=== PATIENT | female | born 1935 | race Caucasian/White ===

== ENCOUNTER 2018-06-08 11:56 | Emergency (ER) | payer BC ==
[~2018-06-08] VITALS: Ht 160 cm; Wt 44.5 kg
[2018-06-08 12:01] VITALS: Ht 160 cm; Wt 44.5 kg
[2018-06-08 12:51] LABS: BASOPHIL % 0.7 % (0-2)
[2018-06-08 12:57] LABS: CALCIUM 8.9 mg/dL (8.5-10.1); CHLORIDE SERUM 97 mmol/L (98-107); CREATININE SERUM 0.6 mg/dL (0.6-1.0); GLUCOSE SERUM 90 mg/dL (74-106); POTASSIUM SERUM 3.8 mmol/L (3.5-5.1); SODIUM SERUM 134 mmol/L (136-145)
[2018-06-08 13:04] LABS: ALBUMIN 2.8 g/dL (3.4-5.0); ALKALINE PHOSPHATASE 101 U/L (46-116); ALT/SGPT 20 U/L (14-59); AST/SGOT 14 U/L (15-37); BILIRUBIN TOTAL 0.34 mg/dL (0.20-1.00); CHOLESTEROL 127 mg/dL (<200); CHOLESTEROL/HDL RATIO 2.4; HDL CHOLESTEROL 53 mg/dL (40-60); LIPASE 103 IU/L (73-393); TOTAL PROTEIN, SERUM 8.2 g/dL (6.4-8.2); TRIGLYCERIDES 66 mg/dL (<150)
[2018-06-08 13:06] LABS: PLATELET COUNT 701 x10^3mcL (130-400); RED CELL DISTRIBUTION WIDTH 22.2 % (11.5-14.5)
[2018-06-08 13:10] LABS: T3 TOTAL 0.97 ng/mL
[2018-06-08 13:28] LABS: FREE T4 0.91 ng/dL (0.76-1.46); FREE THYROXINE INDEX 2.7 ug/dL (1.4-4.5); T4(THYROXINE) 7.2 ug/dL (4.7-13.3)
[2018-06-08 15:36] VITALS: BP 124/76
== END 2018-06-08 15:36 | disposition home or self-care (01) ==
LOC: ED 11:56
PROVIDERS: Specialist
DX: F41.9 Anxiety disorder, unspecified (principal); I11.0 Hypertensive heart disease with heart failure; I50.9 Heart failure, unspecified; Z85.118 Personal history of other malignant neoplasm of bronchus and lung; Z88.2 Allergy status to sulfonamides; Z88.8 Allergy status to other drugs, medicaments and biological substances; Z88.5 Allergy status to narcotic agent
CPT/HCPCS: 83880; 84439; J2060; J7030

== ENCOUNTER 2019-04-27 09:42 | Inpatient (IN) | payer BC ==
[~2019-04-27] VITALS: Ht 152.4 cm; Wt 41.3 kg
[2019-04-27 09:44] VITALS: Ht 152.4 cm; Wt 41.3 kg
[2019-04-27 10:55] LABS: BASOPHIL % 0.3 % (0-2); RED CELL DISTRIBUTION WIDTH 19.2 % (11.5-14.5)
[2019-04-27 10:56] LABS: CALCIUM 8.6 mg/dL (8.5-10.1); CARBON DIOXIDE 26.3 mmol/L (21-32); CHLORIDE SERUM 100 mmol/L (98-107); CREATININE SERUM 0.6 mg/dL (0.6-1.0); GLUCOSE SERUM 100 mg/dL (74-106); POTASSIUM SERUM 4.3 mmol/L (3.5-5.1); SODIUM SERUM 134 mmol/L (136-145)
[2019-04-27 11:01] LABS: ALKALINE PHOSPHATASE 93 U/L (46-116); ALT/SGPT 16 U/L (14-59); AST/SGOT 15 U/L (15-37); BILIRUBIN TOTAL 0.19 mg/dL (0.20-1.00); TOTAL PROTEIN, SERUM 7.1 g/dL (6.4-8.2)
[2019-04-27 11:05] LABS: ALBUMIN 2.4 g/dL (3.4-5.0)
[2019-04-27 11:41] LABS: PLATELET COUNT 507 x10^3mcL (130-400)
[2019-04-27] MEDS ORDERED: KADIAN10 M1 PO (13:29)
[2019-04-27] MEDS ORDERED: GRALISE600 MG PO (13:29)
[2019-04-27] MEDS ORDERED: METOPROLOL ER-1 EACH PO (13:29)
[2019-04-27] MEDS ORDERED: ARIPIPRAZOLE OD10 MG PO (13:29)
[2019-04-27] MEDS ORDERED: ASPIRIN ADULT L81 M5 PO (13:30)
[2019-04-27] MEDS ORDERED: PLAVIX75 M1 PO (13:31)
[2019-04-27 14:10] LABS: CHOLESTEROL/HDL RATIO 2.9
[2019-04-27 14:17] LABS: FREE T4 0.72 ng/dL (0.76-1.46); FREE THYROXINE INDEX 1.8 ug/dL (1.4-4.5); T4(THYROXINE) 5.2 ug/dL (4.7-13.3)
[2019-04-27 14:18] LABS: T3 TOTAL 1.03 ng/mL
[2019-04-27 14:22] VITALS: BP 138/94
[2019-04-27 19:37] LABS: TOTAL IRON BINDING CAPACITY 285 ug/dL (250-450)
[2019-04-27 19:38] LABS: IRON 30 ug/dL (50-170)
[2019-04-27 20:40] VITALS: BP 152/65
[2019-04-28 06:36] VITALS: BP 119/57
[2019-04-28 08:27] VITALS: BP 128/69
[2019-04-28 08:30] LABS: BASOPHIL % 0.4 % (0-2)
[2019-04-28 08:33] LABS: PLATELET COUNT 454 x10^3mcL (130-400); RED CELL DISTRIBUTION WIDTH 19.2 % (11.5-14.5)
[2019-04-28 08:47] LABS: CALCIUM 8.5 mg/dL (8.5-10.1); CARBON DIOXIDE 29.9 mmol/L (21-32); CHLORIDE SERUM 106 mmol/L (98-107); CREATININE SERUM 0.6 mg/dL (0.6-1.0); GLUCOSE SERUM 84 mg/dL (74-106); MAGNESIUM 1.8 mg/dL (1.8-2.4); PHOSPHOROUS 4.1 mg/dL (2.5-4.9); POTASSIUM SERUM 3.4 mmol/L (3.5-5.1); SODIUM SERUM 142 mmol/L (136-145)
[2019-04-28 12:29] VITALS: BP 141/71
[2019-04-28 16:30] VITALS: BP 131/59
[2019-04-28 20:50] VITALS: BP 122/78
[2019-04-29 04:38] VITALS: BP 144/70
[2019-04-29 07:20] LABS: BASOPHIL % 0.4 % (0-2)
[2019-04-29 07:26] LABS: PLATELET COUNT 430 x10^3mcL (130-400); RED CELL DISTRIBUTION WIDTH 19.4 % (11.5-14.5)
[2019-04-29 07:40] LABS: CALCIUM 8.6 mg/dL (8.5-10.1); CARBON DIOXIDE 29.2 mmol/L (21-32); CHLORIDE SERUM 104 mmol/L (98-107); CREATININE SERUM 0.6 mg/dL (0.6-1.0); GLUCOSE SERUM 88 mg/dL (74-106); POTASSIUM SERUM 3.9 mmol/L (3.5-5.1); SODIUM SERUM 141 mmol/L (136-145)
[2019-04-29 07:59] VITALS: BP 139/90
[2019-04-29] MEDS ORDERED: METP PO (11:24)
[2019-04-29] MEDS ORDERED: AMITIZA24 MC1 PO (11:24)
[2019-04-29] MEDS ORDERED: FER300 PO (11:25)
[2019-04-29 12:52] VITALS: BP 139/90
== END 2019-04-29 14:17 | disposition home health service (06) | DRG 377 ==
LOC: ED 09:42 → DU 12:55
PROVIDERS: Emergency Medicine; Internal Medicine Gastroenterology; ADMIT Family Medicine
PROC: 0DB68ZX Excision of Stomach, Via Natural or Artificial Opening Endoscopic, Diagnostic (ICD-10-PCS; principal; 2019-04-28 08:00)
PROC: 0DJD8ZZ Inspection of Lower Intestinal Tract, Via Natural or Artificial Opening Endoscopic (ICD-10-PCS; 2019-04-28 08:00)
DX: K57.31 Diverticulosis of large intestine without perforation or abscess with bleeding (principal); E43 Unspecified severe protein-calorie malnutrition; D62 Acute posthemorrhagic anemia; E87.1 Hypo-osmolality and hyponatremia; R64 Cachexia; Z68.1 Body mass index [BMI] 19.9 or less, adult; I11.0 Hypertensive heart disease with heart failure; I50.9 Heart failure, unspecified; K44.9 Diaphragmatic hernia without obstruction or gangrene; K21.9 Gastro-esophageal reflux disease without esophagitis; J44.9 Chronic obstructive pulmonary disease, unspecified; G62.9 Polyneuropathy, unspecified; F39 Unspecified mood [affective] disorder; I25.10 Atherosclerotic heart disease of native coronary artery without angina pectoris; Z53.29 Procedure and treatment not carried out because of patient's decision for other reasons; Z98.61 Coronary angioplasty status; Z79.82 Long term (current) use of aspirin; Z79.02 Long term (current) use of antithrombotics/antiplatelets; Z99.81 Dependence on supplemental oxygen; Z87.891 Personal history of nicotine dependence; Z87.01 Personal history of pneumonia (recurrent); Z85.118 Personal history of other malignant neoplasm of bronchus and lung; Z95.1 Presence of aortocoronary bypass graft; Z88.1 Allergy status to other antibiotic agents; Z88.2 Allergy status to sulfonamides; Z88.6 Allergy status to analgesic agent; Z88.8 Allergy status to other drugs, medicaments and biological substances; Z88.5 Allergy status to narcotic agent
CPT/HCPCS: 43235; 45378; 83880; 84439; C9113; G0378; J1200; J1610; J2250; J2270; J2310; J2405; J2765; J3010; J3490